=== PATIENT | male | born 1995 | race African-American/Black ===

== ENCOUNTER 2022-03-01 18:23 | Emergency (ER) | payer MEDICAID, SELFPAY ==
[2022-03-01 18:45] VITALS: BP 117/58; PULSE 78; RESP 16; TEMP 36.7; O2SAT 100
[2022-03-01 19:00] VITALS: BP 117/58; PULSE 78; RESP 16; TEMP 36.7; O2SAT 100
--- NOTE | 2022-03-01 19:22 | ED.DENTAL ---
HPI - Dental/Oral General Chief complaint: Dental/Oral Stated complaint: tooth pain Time Seen by Provider: 03/01/22 19:22 Source: patient, RN notes reviewed and old records reviewed History of Present Illness HPI Narrative: 26-year-old male who presents to [facility] care with complaints of dental pain to the right upper gum regions with redness and white pustule noted along gum line above #3 tooth right upper gum line. Patient denies any trouble with his swallowing or any difficulty with his breathing. Patient reports that he has had symptoms for about 3 days and he has been taking Ibuprofen for his discomfort which has helped some. MD Complaint: tooth pain Location: Tooth # (3) Severity scale (1-10): 5 Treatment prior to arrival: oral analgesic Related Data Allergies Allergy/AdvReac Type Severity Reaction Status Date / Time No Known Allergies Allergy Verified 03/01/22 18:46 Review of Systems Review of Systems: CONSTITUTIONAL: Denies fever, chills, or sweats. EYES: Denies visual changes, redness, or discharge. ENT: Denies rhinorrhea, congestion, sore throat, or otalgia. pain and redness to right upper gums with pustule along gum above gum above #3 tooth. no Vargas angina or any facial swelling. noted, no trismus CARDIOVASCULAR: Denies chest pain, palpitations, or edema. RESPIRATORY: Denies cough or dyspnea. GASTROINTESTINAL: Denies abdominal pain, nausea, vomiting, or diarrhea. GENITOURINARY: Denies dysuria or hematuria. SKIN: Denies rash or itching. MUSCULOSKELETAL: Denies back pain, joint pain, or myalgia. NEUROLOGIC: Denies headache, numbness, or weakness. PSYCHIATRIC: Denies anxiety or depression. [facility] Past Medical History Medical History (Updated 03/04/22 @ 16:31 by Lynn Wellington NP) History of dental problems Surgical History Surgical History (Updated 03/01/22 @ 19:33 by Lynn Wellington NP) Hx of appendectomy Family History Family History (Updated 03/01/22 @ 19:33 by Lynn Wellington NP) Grandparent Diabetes mellitus Hypertension Social History Social History (Updated 03/04/22 @ 16:29 by Lynn Wellington NP) Smoking packs per day: 1 Smoking cigarettes per day: 20.0 Smoking status: Current every day smoker Alcohol intake: never Substance use type: marijuana Last use: social Living arrangements: with family Gender identity (if verbalized by the patient): Male Comments At time of signature, agree with nursing past medical, surgical, social and family history. There is no relevant family history pertinent to the presenting complaint Exam Narrative: GENERAL: Well-appearing, well-nourished, and in no acute distress. HEAD: Normocephalic, atraumatic. EYES: PERRLA and EOMI. ENT: Nares clear, no rhinorrhea or epistaxis. Mucous membranes moist.TM's normal with good light reflex, throat pink with no lesions or exudates or tonsil swelling, redness with white pustule noted on gum line right posterior gum region above #3 tooth. no facial swelling or any trismus. NECK: Supple. no lymphadenopathy CHEST: Clear to auscultation. No respiratory distress.SAO2 100% on room air HEART: Regular rate and rhythm. No murmur heard. Normal peripheral pulses. ABDOMEN: Soft, nontender, nondistended, normal active bowel sounds. EXTREMITIES: Normal range of motion. No edema. SKIN: Warm, dry, no rash. NEURO: No focal deficits. Alert and oriented x3. Course Course Level of Care: Express Care Visit Vital Signs Vital signs: Vital Signs Temperature 36.7 C 03/01/22 18:45 Pulse Rate 78 03/01/22 18:45 Respiratory Rate 16 03/01/22 18:45 Blood Pressure 117/58 L 03/01/22 18:45 Pulse Oximetry 100 03/01/22 18:45 Oxygen Delivery Room Air 03/01/22 18:45 Temperature 36.7 C 03/01/22 19:00 Pulse Rate 78 03/01/22 19:00 Respiratory Rate 16 03/01/22 19:00 Blood Pressure 117/58 L 03/01/22 19:00 Pulse Oximetry 100 03/01/22 19:00 Oxygen Delivery Room Air 03/01/22 19:00
== END 2022-03-01 19:38 | disposition home or self-care (01) ==
PROVIDERS: Emergency Provider Registered Nurse
DX: K04.7 Periapical abscess without sinus (principal); F17.210 Nicotine dependence, cigarettes, uncomplicated
CPT/HCPCS: 99213; G0463